=== PATIENT | male | born 1945 | race Caucasian/White ===

== ENCOUNTER → 2017-08-13 | Outpatient (CLI) | payer MEDICARE ==
[~2017-08-13] MED LIST: ADJUSTABLE COMM1 MIS; ALLO300T2 PO; AMLO10TA2 PO; ASPI325T PO; BENA20TA PO; BENZ100 PO; CPMMACHINE; HYDR-2768 PO; HYDR25TA5 PO; LEVO50TA51 PO; LEVO75TA3 PO; METO50CR PO; METO50TA PO; PRAV40TA PO; PRAV40TA2 PO; WALKER WHEELS/F1 MIS; ZITH250T PO
[2017-08-13 09:45] LABS: AUTOMATED NEUTROPHIL # 6.8 TH/MM3 (1.8-7.7); BASOPHIL # 0.1 TH/MM3 (0-0.2); BASOPHIL % 0.8 % (0.0-2.0); EOSINOPHIL # 1.2 TH/MM3 (0-0.4); EOSINOPHIL % 11.7 % (0.0-4.0); HEMATOCRIT 48.4 % (39.0-51.0); HEMO FLAGS DIFF FINAL; LYMPH % 13.6 % (9.0-44.0); LYMPHOCYTE # 1.4 TH/MM3 (1.0-4.8); MEAN CELL VOLUME 94.3 FL (80.0-100.0); MEAN CORPUSCULAR HEMOGLOBIN 31.4 PG (27.0-34.0); MEAN CORPUSCULAR HGB CONC 33.3 % (32.0-36.0); MONO % 9.2 % (0.0-8.0); NEUT % 64.7 % (16.0-70.0); PLATELET COUNT 185 TH/MM3 (150-450); RED BLOOD COUNT 5.13 MIL/MM3 (4.50-5.90); RED CELL DISTRIBUTION WIDTH 14.9 % (11.6-17.2); WHITE BLOOD COUNT 10.6 TH/MM3 (4.0-11.0)
[2017-08-13 09:46] LABS: BLOOD, URINE NEG (NEG); GLUCOSE,URINE NEG (NEG); KETONE, URINE NEG (NEG); NITRITE,URINE NEG (NEG); PH, URINE 6.5 (5.0-8.5); URINE COLOR LIGHT-YELLOW (YELLW/STRAW)
[2017-08-13 09:52] LABS: APTT (PATIENT) 29.4 SEC (24.3-30.1); PROTHROMBIN TIME - PATIENT 10.9 SEC (9.8-11.6)
[2017-08-13 09:56] LABS: COMMENT (UR) CULT NOT INDICATED; CULTURE IF INDICATED CULT NOT INDICATED
[2017-08-13 10:07] LABS: ANION GAP 6 MEQ/L (5-15); AST (GOT) 20 U/L (15-37); BLOOD UREA NITROGEN 18 MG/DL (7-18); CHLORIDE 100 MEQ/L (98-107); GLOMERULAR FILTRATION RATE 61 ML/MIN (>89); GLUCOSE,FASTING 128 MG/DL (74-99); POTASSIUM 4.1 MEQ/L (3.5-5.1); SODIUM (NA) 136 MEQ/L (136-145)
[2017-08-13 10:12] LABS: ALKALINE PHOSPHATASE 84 U/L (45-117); ALT (GPT) 32 U/L (12-78); TOTAL BILIRUBIN ADULT 0.7 MG/DL (0.2-1.0)
== END ==
LOC: CPRE 08:17
PROVIDERS: ATTEND Surgery
DX: Z01.810 Encounter for preprocedural cardiovascular examination (principal); Z01.812 Encounter for preprocedural laboratory examination
CPT/HCPCS: 36415; 80053; 81001; 85025; 85610; 85730

== ENCOUNTER 2017-08-20 05:27 | Inpatient (IN) | payer MEDICARE ==
--- NOTE | 2017-08-14 09:34 | MH ---
cc: Kareen RUIZ M.D. DATE OF ADMISSION 08/20/2017 PREOPERATIVE DIAGNOSIS Osteoarthritic degeneration right knee now being admitted for right total knee arthroplasty. ADMISSION HISTORY AND PHYSICAL This pleasant 71-year-old male is being admitted today for a right total knee arthroplasty due to severe painful osteoarthritic degeneration right knee. OTHER PAST HISTORY He has a history of: 1. Diabetes 2. Sleep apnea 3. Hypothyroidism 4. Hypertension MEDICATIONS Current medications include: 5. Hydrochlorothiazide 6. Pravastatin 7. Metoprolol 8. Amlodipine 9. Benazepril 10. Allopurinol PAST SURGICAL HISTORY Include: 1. Left partial knee replacement 2. He has had of partial kidney removal for cancer. REVIEW OF SYSTEMS Noncontributory FAMILY HISTORY Noncontributory SOCIAL HISTORY He does not smoke, does not drink. ALLERGIES He has no known allergies. PHYSICAL EXAMINATION We find a 71-year male well-developed, well-nourished oriented x3 complaining of pain in his right knee. VITAL SIGNS: Blood pressure 120/68, pulse 60 and regular, respirations 18, temperature 98.1, pulse oximetry 95% on room air. HEENT: Eyes PERRL, EOMI. Ears, nose, mouth clear. NECK: Supple. LUNGS: Clear. HEART: Regular rate. ABDOMEN: Soft. Positive bowel sounds, nontender. EXTREMITIES: Reveal his right knee to have crepitance on range of motion. He lacks 5 degrees short of full extension, 90 degrees of flexion. He has genu varus deformity. He is neurovascularly intact to his toes. IMPRESSION AT THIS TIME Severe painful osteoarthritic degeneration right knee. PLAN Admission for right total knee arthroplasty today. The patient given a prescription for postoperative pain and anticoagulation control in the office. He understands the use of Hibiclens scrub and Bactroban preoperatively and plans on going home with home health care after a surgical stay in the hospital. MD REI Manley/CELENA /9:14 AM /9:19 AM
[~2017-08-20] VITALS: Ht 182.9 cm; Wt 112.0 kg
[~2017-08-20 05:27] MED LIST changes: -ADJUSTABLE COMM1 MIS; -ASPI325T PO; -BENZ100 PO; -CPMMACHINE; -HYDR-2768 PO; -LEVO50TA51 PO; -METO50CR PO; -PRAV40TA PO; -WALKER WHEELS/F1 MIS; -ZITH250T PO
[2017-08-20] MEDS ORDERED: CHLORHEXIDINE GLUCONATE 2 % 1 PACK (2 CLOTHS) TOPICAL PRN (06:30)
[2017-08-20] MEDS ORDERED: VANCOMYCIN 1000 MG/NS 250 ML (for <70 kg) IV SCH ×2 (06:30)
[2017-08-20] MEDS ORDERED: SODIUM CHLORID 0.9% 500 ML IV PRN (06:30)
[2017-08-20] MEDS ORDERED: ceFAZolin 2 GM PREMIX 50 ML IV SCH (06:30)
[2017-08-20] MEDS ORDERED: INSULIN HUMAN REGULAR 1,000 UNITS/10 ML VIAL SQ PRN (06:30)
[2017-08-20] MEDS ORDERED: LACTATED RINGER'S 1000 ML IV PRN (06:30)
[2017-08-20] MEDS ORDERED: CHLORHEXIDINE GLUCONATE 4% SOLN 120 ML BTL TOPICAL SCH (06:30)
[2017-08-20] MEDS ORDERED: METOPROLOL TARTRATE 25 MG TAB PO PRN (06:30)
[2017-08-20] MEDS ORDERED: POVIDONE IODINE 5% (ANTISEPSIS KIT) 4 APPLICATIONS EACH NARE PRN (06:30)
[2017-08-20] MEDS ORDERED: ceFAZolin INJ 1,000 MG VIAL ONE (07:05)
[2017-08-20] MEDS ORDERED: STERILE WATER FOR INJECTION 20 ML VIAL ONE (07:06)
[2017-08-20] MEDS ORDERED: FAMOTIDINE 20 MG/2 ML VIAL ONE (07:44)
[2017-08-20] MEDS ORDERED: SUGAMMADEX SODIUM 200 MG/2 ML VIAL IV PUSH ONE ×2 (07:45)
[2017-08-20] MEDS ORDERED: TRANEXAMIC ACID IV SCH ×2 (08:00→11:10)
[2017-08-20] MEDS ORDERED: SODIUM CHLORIDE 0.9% IV SCH ×2 (08:00→11:10)
[2017-08-20] MEDS ORDERED: EXPAREL PERI-ARTICULAR INJECTION (TOTAL VOL. 100 ML) P-ARTICULR SCH ×2 (08:00)
[2017-08-20] MEDS: TRANEXAMIC ACID IV SCH ×2 (08:10→11:19)
[2017-08-20] MEDS: SODIUM CHLORIDE 0.9% IV SCH ×2 (08:10→11:19)
[2017-08-20] MEDS: LACTATED RINGER'S 1000 ML INJ 1,000 ML IV SCH ×2 (10:20→22:50)
--- NOTE | 2017-08-20 10:25 | HHI.FF ---
Face to Face Verification Diagnosis: (1) Status post total right knee replacement using cement Physical Therapy Gait training Knee: Total knee, Protocol: Right, Gait training, Full weight bearing Canvas Knee Splint: When in bed & 2 pillows btw thighs Nursing RN: 3 days/week x 2 weeks Nursing: Dressing changes Dressing Changes: Daily dressing change, 4x4s, Gauze, Paper tape I have seen patient Alvino Castaneda on 08/20/17. My clinical findings support the need for the requested home health care services because: Limited ability to care for self High risk of falls I certify that my clinical findings support that this patient is homebound because: Unsteady gait/balance aKreen Salazar MD Aug 20, 2017 10:25
[2017-08-20] MEDS ORDERED: ADJUSTABLE COMM1 MIS (10:26)
[2017-08-20] MEDS ORDERED: CPMMACHINE (10:26)
[2017-08-20] MEDS ORDERED: WALKER WHEELS/F1 MIS (10:26)
[2017-08-20] MEDS ORDERED: MORPHINE SULFATE 4 MG/ML INJ IV PUSH PRN (10:30)
[2017-08-20] MEDS ORDERED: Post-op Orders (for Pharmacy) MISC XX ONE (10:30)
[2017-08-20] MEDS ORDERED: ACETAMINOPHEN 325 MG TAB PO PRN (10:30)
[2017-08-20] MEDS ORDERED: TEMAZEPAM 15 MG CAP PO PRN (10:30)
[2017-08-20] MEDS ORDERED: ONDANSETRON HCL 4 MG/2 ML VIAL IVP PRN (10:30)
[2017-08-20] MEDS ORDERED: ACETAMINOPHEN/HYDROcodone 325 MG/7.5 MG TAB PO PRN (10:30)
[2017-08-20] MEDS ORDERED: diphenhydrAMINE HCL 50 MG/ML VIAL IV PRN (10:30)
[2017-08-20] MEDS ORDERED: NALOXONE HCL 0.4 MG/ML AMP IV PRN (10:30)
[2017-08-20] MEDS ORDERED: SODIUM CHLORIDE 0.9% FLUSH 5 ML FLUSH IVF PRN (10:30)
[2017-08-20] MEDS ORDERED: *morphine SULFATE 8 MG/ML PERIprocedure ONLY ONE ×2 (10:36→10:54)
[2017-08-20] MEDS ORDERED: BUPIVACAINE HCL PF 0.5% 30 ML VIAL NERV BLOCK ONE (11:16)
[2017-08-20] MEDS ORDERED: DEXAMETHASONE SOD PHOS PF 10 MG/ML VIAL IV ONE (11:16)
--- NOTE | 2017-08-20 11:48 | MP ---
cc: Kareen RUIZ M.D. DATE OF SURGERY 08/20/2017 PREOPERATIVE DIAGNOSIS Osteoarthritic degeneration right knee. POSTOPERATIVE DIAGNOSIS Osteoarthritic degeneration right knee. SURGERY PERFORMED Right total knee arthroplasty using Consensus components, size 6 femur, 5 tibia, 12 standard insert and 3 patella with two batches of DePuy cement. SURGEON Dr. Ruiz ANESTHESIA General intubation and block. STAVE BLOCK ROLLER JENNIFER Yeh ANESTHESIA General intubation. PROCEDURE FOLLOWS After successful induction of anesthesia, the patient is placed on the operating room table in the supine position. The knee is prepped and draped in the usual manner. A tourniquet is inflated at the upper thigh and set to 300 mmHg pressure after exsanguination of the lower extremity. A longitudinal incision is made extending from 3 inches proximal to the superior pole of the patella, across the patella in longitudinal fashion, and down past the insertion of the tibial tubercle into the proximal tibia. The incision is carried down through subcutaneous tissue along the medial aspect of the patella and retinaculum, down through the capsule to expose the knee joint. The patella and patellar tendon are freed up enough to allow the patella to be inverted and retracted off the lateral side of the knee joint. The knee joint is left exposed. Small osteophytes are removed. All soft tissue is removed to allow proper position of the femoral and tibial cutting jig guide. The first femoral jig is then inserted along the distal end of the femur after first measuring to decide whether this is a small, medium, or large component. The notch is then drilled and the tibial cutting guide inserted into the femoral cutting guide, along with the ankle brace to allow for proper measurement of the tibial cutting surface that needed to be resected. Pins are inserted into the tibial cutting jig and femoral cutting jig to hold them in place. An oscillating saw is then used to resect the surface of the tibia. The surface of the tibia is then completely removed using sharp and blunt dissection. The anterior and posterior cuts of the femur are then made as well using an oscillating saw through the cutting guide. All guides are then removed and the varus/valgus angulation cutting guide applied to the femur for proper measurement of the proper amount of valgus. The anterior cutting guide for the femur is then inserted at the anterior femoral cuts made. Next, the first block trial is inserted into the femur to allow for proper condyle drill holes to be made which are then made followed by removal of the bone between the condyles using an oscillating saw as well as the bone removed at the most posterior surface of the condyle. After this, this guide is removed and the chamfer cuts made using the chamfer cutting guide from both anterior and posterior. Next, the femoral trial is then inserted, the tibial surface reflected anterior to expose the tibial surface and a tibial stem guide is inserted after first measuring for a standard, standard plus, large, or large plus surface to be used. After the stem is impacted the trial tibial surface is applied followed by the trial meniscal components. After full range of motion is found with the appropriate length meniscal components varying the patella is prepared by resecting the posterior aspect of the patella using an oscillating saw, inserting a trial. The trial is then removed and the cruciate cutting guide applied using the bur to cut the cruciate cuts. After cruciate cuts are made all trials are removed. The wound is irrigated copiously with antibiotic solution and Water Pik and the actual components inserted into place using Consensus components, size 6 femur, 5 tibia, 12 standard insert and 3 patella with two batches of [employer] cement. After the cement has hardened and the components are found to have full range of motion with no instability, the tourniquet is deflated, total tourniquet time being 52 minutes at 300 mmHg pressure. 100 cc of Exparel injected around the knee joint for extra pain control. The wound again is irrigated copiously with antibiotic solution, meticulous hemostasis achieved. The deep fascia is approximated with running #2 Quill, the subcutaneous tissue approximated using interrupted and running 2-0 and 3-0 Monocryl sutures, Steri-Strips, sterile dressing and knee immobilizer. DRAINS No drain utilized. ESTIMATED BLOOD LOSS 100 cc. COUNTS Sponge and suture counts were correct. The patient tolerated the procedure well and left the operating room in satisfactory condition. Wiliam RODRIGUEZ was present during the entire procedure to include patient positioning and the procedure. The medical necessity of the nurse practitioner as employee relations assistant was indicated in this case due to the surgical complexity of the case itself. During the surgical case, the build technician was working the back table while my psychologist research assistant WELFARE ADMINISTRATOR was directly assisting me. J. MD REI Foster/VICKY /10:28 AM /11:34 AM
[2017-08-20] MEDS ORDERED: LIDOCAINE HCL 1% PF 5 ML AMPULE OTHER ONE (12:00)
[2017-08-20] MEDS ORDERED: ONDANSETRON HCL 4 MG/2 ML VIAL IV ONE (12:00)
[2017-08-20] MEDS ORDERED: DEXAMETHASONE SOD PHOS 4 MG/ML VIAL IV ONE (12:00)
[2017-08-20] MEDS ORDERED: MIDAZOLAM HCL 2 MG/2 ML VIAL IV ONE (12:00)
[2017-08-20] MEDS ORDERED: ROCURONIUM INJ 50 MG/5 ML SYRINGE IV PUSH ONE (12:00)
[2017-08-20] MEDS ORDERED: ePHEDrine/NS 25 MG/5 ML SYR IV ONE (12:00)
[2017-08-20] MEDS ORDERED: LACTATED RINGER'S 1000 ML INJ 2,000 ML IV ONE (12:00)
[2017-08-20] MEDS ORDERED: PROPOFOL 200 MG/20 ML AMP IV ONE (12:00)
--- NOTE | 2017-08-20 12:21 | RADRPT ---
EXAM DATE/TIME: 08/20/2017 11:17 [facility] COMPARISON: No previous studies available for comparison. INDICATIONS : Right knee replacement. MEDICAL HISTORY : Hypertension. Myocardial infarction. Smoker. SURGICAL HISTORY : Total knee replacement, right. ENCOUNTER: Initial ACUITY: 1 day PAIN SCORE: 6/10 LOCATION: Right entire knee. FINDINGS: Patient is status post right total knee arthroplasty. Tibial and femoral components appear well seate d. Subcutaneous air and air within the knee joint identified consistent with the history of recent [place] rgery. No fractures. CONCLUSION: Satisfactory appearance of right knee arthroplasty. Tonny Cheung MD on August 20, 2017 at 12:19 Board Certified Radiologist. This report was verified electronically.
[2017-08-20 13:03] VITALS: BP 130/66; PULSE 76; RESP 18; TEMP 96; O2SAT 94
[2017-08-20 16:00] VITALS: BP 137/71; PULSE 65; RESP 17; TEMP 98.5; O2SAT 99
[2017-08-20] MEDS: ACETAMINOPHEN/HYDROcodone 325 MG/7.5 MG TAB PO PRN ×2 (18:31→22:32)
[2017-08-20 20:00] VITALS: BP 144/69; PULSE 79; RESP 16; TEMP 97.8; O2SAT 98
[2017-08-20] MEDS: METOPROLOL TARTRATE 50 MG TAB PO SCH (20:59)
[2017-08-20] MEDS: SODIUM CHLORIDE 0.9% FLUSH 5 ML FLUSH IVF SCH (21:00)
[2017-08-20 21:52] VITALS: O2SAT 97
[2017-08-21] VITALS: BP 131/69; PULSE 67; RESP 20; TEMP 97; O2SAT 94
[2017-08-21] MEDS: ACETAMINOPHEN/HYDROcodone 325 MG/7.5 MG TAB PO PRN ×5 (03:19→23:35)
[2017-08-21 04:00] VITALS: BP 131/74; PULSE 62; RESP 20; TEMP 98; O2SAT 97
[2017-08-21 05:48] LABS: REVIEW FLAG FINAL
--- NOTE | 2017-08-21 07:39 | PD.ORT.PN ---
Subjective Subjective Remarks Patient comfortable today without complaints. Objective Vitals Vital Signs Date Time Temp Pulse Resp B/P (MAP) Pulse Ox O2 Delivery O2 Flow Rate FiO2 08/21/17 04:00 98.0 62 20 131/74 (93) 97 08/21/17 00:00 97.0 67 20 131/69 (89) 94 08/20/17 21:52 97 Nasal Cannula 2.00 08/20/17 20:00 97.8 79 16 144/69 (94) 98 08/20/17 16:00 98.5 65 17 137/71 (93) 99 08/20/17 13:03 96.0 76 18 130/66 (87) 94 08/20/17 12:46 71 20 135/75 (95) 99 Nasal Cannula 2 08/20/17 11:45 75 20 130/65 (86) 97 Nasal Cannula 2 08/20/17 11:30 69 20 129/69 (89) 98 Nasal Cannula 2 08/20/17 11:15 70 20 138/71 (93) 98 Nasal Cannula 2 08/20/17 11:00 71 20 128/63 (84) 98 Nasal Cannula 2 08/20/17 10:45 73 20 133/61 (85) 95 Nasal Cannula 2 08/20/17 10:30 98.1 72 20 135/68 (90) 94 Nasal Cannula 2 I/O 08/20/17 08/20/17 08/20/17 08/21/17 08/21/17 08/21/17 07:00 15:00 23:00 07:00 15:00 23:00 Intake Total 1800 ml 100 ml 1232 ml Output Total 100 ml 450 ml 300 ml Balance 1700 ml -350 ml 932 ml Intake Oral 300 ml IV Total 100 ml 932 ml Other 1800 ml Output Urine Total 450 ml 300 ml Estimated Blood Loss 100 ml # Bowel Movements 0 Result Diagram: 08/21/17 0414 Imaging Last 24 hours Impressions Knee X-Ray 08/20/17 1020 Signed Impressions: Service Date/Time: Sunday, August 20, 2017 11:17 - CONCLUSION: Satisfactory appearance of right knee arthroplasty. Tonny Cheung MD Objective Remarks Patient sitting up in a chair. Neurovascularly intact to toes. Dressing dry and intact. Assessment & Plan Ortho Post Op Day #: 1 Problem List: Assessment and Plan Out of bed today with physical therapy and daily wound care. Plan on discharge tomorrow to home with home healthcare. Kareen Salazar MD Aug 21, 2017 07:39
[2017-08-21 08:00] VITALS: BP 116/64; PULSE 65; RESP 18; TEMP 97.2; O2SAT 95
[2017-08-21] MEDS: SODIUM CHLORIDE 0.9% FLUSH 5 ML FLUSH IVF SCH ×2 (09:00→21:00)
[2017-08-21] MEDS: LISINOPRIL 20 MG TAB PO SCH (09:06)
[2017-08-21] MEDS: ALLOPURINOL 300 MG TAB PO SCH (09:06)
[2017-08-21] MEDS: PRAVASTATIN SOD 40 MG TAB PO SCH (09:06)
[2017-08-21] MEDS: METOPROLOL TARTRATE 50 MG TAB PO SCH ×2 (09:06→21:17)
[2017-08-21] MEDS: LEVOTHYROXINE SODIUM 75 MCG TAB PO SCH (09:06)
[2017-08-21] MEDS: HYDROCHLOROTHIAZIDE 25 MG TAB PO SCH (09:06)
[2017-08-21] MEDS: APIXABAN 2.5 MG TABLET PO SCH ×2 (09:06→21:17)
[2017-08-21] MEDS: LACTATED RINGER'S 1000 ML INJ 1,000 ML IV SCH ×2 (11:20→23:50)
[2017-08-21 12:00] VITALS: BP 120/70; PULSE 70; RESP 19; TEMP 98.2; O2SAT 96
[2017-08-21 15:58] VITALS: BP 151/72; PULSE 67; RESP 19; TEMP 96.4; O2SAT 95
[2017-08-21 19:01] VITALS: BP 141/64; PULSE 76; RESP 18; TEMP 96.4; O2SAT 96
[2017-08-21] MEDS: MULTIVITAMINS/MINERALS THERAPEUTIC TAB PO SCH (21:17)
[2017-08-21] MEDS: DOCUSATE SODIUM 100 MG CAP PO SCH (21:17)
[2017-08-22] VITALS: BP 132/65; PULSE 64; RESP 17; TEMP 96; O2SAT 97
[2017-08-22] MEDS: ACETAMINOPHEN/HYDROcodone 325 MG/7.5 MG TAB PO PRN ×3 (04:59→13:26)
[2017-08-22 06:30] LABS: HEMATOCRIT 39.2 % (39.0-51.0)
[2017-08-22 06:34] LABS: REVIEW FLAG FINAL
[2017-08-22 08:00] VITALS: BP 108/53; PULSE 65; RESP 16; TEMP 98; O2SAT 95
[2017-08-22] MEDS: SODIUM CHLORIDE 0.9% FLUSH 5 ML FLUSH IVF SCH (09:00)
[2017-08-22] MEDS: LISINOPRIL 20 MG TAB PO SCH (09:23)
[2017-08-22] MEDS: METOPROLOL TARTRATE 50 MG TAB PO SCH (09:23)
[2017-08-22] MEDS: PRAVASTATIN SOD 40 MG TAB PO SCH (09:23)
[2017-08-22] MEDS: ALLOPURINOL 300 MG TAB PO SCH (09:23)
[2017-08-22] MEDS: HYDROCHLOROTHIAZIDE 25 MG TAB PO SCH (09:24)
[2017-08-22] MEDS: DOCUSATE SODIUM 100 MG CAP PO SCH (09:24)
[2017-08-22] MEDS: APIXABAN 2.5 MG TABLET PO SCH (09:24)
[2017-08-22] MEDS: MULTIVITAMINS/MINERALS THERAPEUTIC TAB PO SCH (09:24)
[2017-08-22] MEDS: LEVOTHYROXINE SODIUM 75 MCG TAB PO SCH (09:24)
--- NOTE | 2017-08-22 09:44 | HHI.DS ---
Discharge Summary Admission Date Aug 20, 2017 at 08:47 Discharge Date: Aug 22, 2017 Admitting Diagnosis Osteoarthritic degeneration right knee Diagnosis: (1) Status post total right knee replacement using cement Diagnosis: Principal ICD Codes: Z96.651 - Presence of right artificial knee joint Brief History This is a 71 year old male patient CBC/BMP: 08/22/17 0611 Significant Findings Laboratory Tests Test 08/21/17 04:14 08/22/17 06:11 PE at Discharge Patient sitting up in a chair. Neurovascularly intact to toes. Dressing dry and intact. Hospital Course Patient underwent a right total knee arthroplasty on day of admission. He received a course of prophylactic IV antibiotics and within 23 hours started on anticoagulation therapy. He continued to improve remained afebrile vital signs stable and neurovascularly intact began out of bed tolerating food and fluids well in physical therapy. He remained afebrile and was discharged to home with home healthcare on second postoperative day in good condition with instructions for continuation of physical therapy and office appointment for follow-up. Pt Condition on Discharge: Good Discharge Disposition: Disch w/ Home Health Serv Discharge Instructions Diet Instructions: Diabetic Diet Activities You Can Perform: Full Weight Bearing, Shower Only-No Bath Activities to Avoid: Bathing, Driving Kareen Salazar MD Aug 22, 2017 09:44
[2017-08-22] MEDS ORDERED: BACITRACIN OINT 0.9 GM PKT TOP PRN (10:15)
--- NOTE | 2017-08-22 10:59 | PD.ORT.PN ---
Subjective Subjective Remarks Patient comfortable today without complaints. Objective Vitals Vital Signs Date Time Temp Pulse Resp B/P (MAP) Pulse Ox O2 Delivery O2 Flow Rate FiO2 08/22/17 10:37 16 08/22/17 08:00 98.0 65 16 108/53 (71) 95 08/22/17 00:00 96.0 64 17 132/65 (87) 97 08/21/17 19:01 96.4 76 18 141/64 (89) 96 08/21/17 15:58 96.4 67 19 151/72 (98) 95 08/21/17 12:00 98.2 70 19 120/70 (87) 96 I/O 08/21/17 08/21/17 08/21/17 08/22/17 08/22/17 08/22/17 06:59 14:59 22:59 06:59 14:59 22:59 Intake Total 1232 ml 480 ml 408 ml Output Total 300 ml 600 ml Balance 932 ml -120 ml 408 ml Intake Oral 300 ml 480 ml 408 ml IV Total 932 ml Output Urine Total 300 ml 600 ml # Voids 2 # Bowel Movements 0 0 0 Result Diagram: 08/22/17 0611 Imaging Last 24 hours Impressions Knee X-Ray 08/20/17 1020 Signed Impressions: Service Date/Time: Sunday, August 20, 2017 11:17 - CONCLUSION: Satisfactory appearance of right knee arthroplasty. Tonny Cheung MD Objective Remarks Patient ambulating well with walker. Neurovascularly intact to toes. Dressing dry and intact. Assessment & Plan Ortho Post Op Day #: 2 Problem List: (1) Status post total right knee replacement using cement ICD Codes: Z96.651 - Presence of right artificial knee joint Assessment and Plan Out of bed today with physical therapy and daily wound care. Plan on discharge today to home with home healthcare. Kareen Salazar MD Aug 22, 2017 10:59
[2017-08-22] MEDS: LACTATED RINGER'S 1000 ML INJ 1,000 ML IV SCH (12:20)
[2017-08-22 15:41] VITALS: BP 105/54; PULSE 62; RESP 16; TEMP 97.9; O2SAT 92
[2017-08-22 17:00] VITALS: BP 129/72; PULSE 45; RESP 16; TEMP 97; O2SAT 92
== END 2017-08-22 14:46 | disposition home health service (06) | DRG 470 ==
LOC: HSDC 05:27 → EDSTATUS 08:00 → HSDI 08:47 → N06A 13:04
PROVIDERS: ADMIT Surgery; ATTEND Surgery
PROC: 3E0T3BZ Introduction of Anesthetic Agent into Peripheral Nerves and Plexi, Percutaneous Approach (ICD-10-PCS; 2017-08-20)
PROC: 0SRC0J9 Replacement of Right Knee Joint with Synthetic Substitute, Cemented, Open Approach (ICD-10-PCS; principal; 2017-08-20 07:46)
DX: M17.11 Unilateral primary osteoarthritis, right knee (principal); E11.9 Type 2 diabetes mellitus without complications; I10 Essential (primary) hypertension; E03.9 Hypothyroidism, unspecified; M19.90 Unspecified osteoarthritis, unspecified site; G47.30 Sleep apnea, unspecified; Z90.5 Acquired absence of kidney; E66.9 Obesity, unspecified; Z68.33 Body mass index [BMI] 33.0-33.9, adult; I25.2 Old myocardial infarction; I25.10 Atherosclerotic heart disease of native coronary artery without angina pectoris; M10.9 Gout, unspecified; Z87.891 Personal history of nicotine dependence
CPT/HCPCS: 73560; 85014; 85018; 86850; 86900; 86901; 94150; C1776; C9290; J0690; J1100; J2250; J2270; J2405; J3010; J3370; J7050; J7120; L1830